=== PATIENT | female | born 1975 | race Caucasian/White ===

== ENCOUNTER 2018-10-23 22:57 | Emergency (ER) | payer OTHER ==
[2018-10-23 23:32] VITALS: BP 129/90; TEMP 99.2
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
[2018-10-23] MEDS ORDERED: CHLORHEXIDINE GLUCONATE 4 % 15 ML UD TOP ONE (23:49)
[2018-10-23 23:58] VITALS: O2SAT 99
== END 2018-10-23 23:55 | disposition home or self-care (01) ==
LOC: ER 22:57
DX: S60.311A Abrasion of right thumb, initial encounter (principal); S50.311A Abrasion of right elbow, initial encounter; Y09 Assault by unspecified means; Y99.0 Civilian activity done for income or pay; Y92.69 Other specified industrial and construction area as the place of occurrence of the external cause